=== PATIENT | male | born 1980 | race Caucasian/White ===

== ENCOUNTER 2016-11-13 01:06 | Emergency (ER) | payer OTHER ==
[2016-11-13 01:21] VITALS: TEMP 98.1
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
--- NOTE | 2016-11-13 02:28 | XR ---
EXAM: XR Left Elbow, 2 Views XR Right Elbow, 2 Views CLINICAL HISTORY: Reason: trauma TECHNIQUE: Frontal and lateral views of the bilateral elbows. COMPARISON: No relevant prior studies available. FINDINGS: Bones/joints: Unremarkable. No acute fracture. No dislocation. Soft tissues: Unremarkable. IMPRESSION: Normal bilateral elbow x-rays.
[2016-11-13] MEDS ORDERED: HYDROcodone/APAP 5-325MG 1 EACH TAB PO STA (03:16)
[2016-11-13 03:33] VITALS: BP 133/72; PULSE 89; RESP 16
== END 2016-11-13 03:55 | disposition home or self-care (01) ==
LOC: EC 01:06
DX: S02.2XXA Fracture of nasal bones, initial encounter for closed fracture (principal); S01.81XA Laceration without foreign body of other part of head, initial encounter; M25.521 Pain in right elbow; M25.522 Pain in left elbow; R00.0 Tachycardia, unspecified; F17.200 Nicotine dependence, unspecified, uncomplicated; Y00.XXXA Assault by blunt object, initial encounter; Y92.410 Unspecified street and highway as the place of occurrence of the external cause
CPT/HCPCS: 12014; 70450; 70486; 93005; 99284

== ENCOUNTER 2017-02-23 17:18 | Emergency (ER) | payer OTHER ==
[2017-02-23 17:52] VITALS: BP 121/78; PULSE 78; RESP 18; TEMP 98.9
== END 2017-02-23 18:21 | disposition home or self-care (01) ==
LOC: EC 17:18
DX: Z02.9 Encounter for administrative examinations, unspecified (principal)

== ENCOUNTER 2019-12-20 13:29 | Emergency (ER) | payer OTHER ==
[2019-12-20] MEDS ORDERED: ONDANSETRON 4 MG/2 ML VIAL IVP STA (14:09)
[2019-12-20] MEDS ORDERED: SODIUM CHLORIDE 0.9% 1,000 ML IV STA ×2 (14:09)
[2019-12-20] MEDS ORDERED: KETOROLAC 30 MG/ML 1 ML VIAL IVP STA (14:09)
[2019-12-20] MEDS ORDERED: PANTOPRAZOLE 40 MG/10 ML VIAL IVP STA (14:09)
[2019-12-20] MEDS ORDERED: MORPHINE SULFATE 2 MG/ML SYRINGE IVP STA (14:09)
--- NOTE | 2019-12-20 14:15 | ED ---
Abdominal Pain HPI - General Chief Complaint: Abdominal Pain Stated Complaint: kidney pain/lower back pain Time Seen by Provider: 12/20/19 14:01 Source: patient, RN notes reviewed, old records reviewed Mode of arrival: ambulatory Limitations: no limitations - History of Present Illness Initial Comments: Patient is a 39-year-old male who presents emergency department today for evaluation for concerns for left-sided flank pain or abdominal pain starting yesterday after work. He reports a constant pain. States that it's painful for him to take a deep breath or cough on his left kidney area. No history of kidney stones. He does report he has a darker urine within the past day. Denies any changes in stools. - Related Data Previous Rx's Medication Instructions Recorded Cyclobenzaprine [Flexeril] 10 mg PO TID #12 tab 12/20/19 Ibuprofen [Motrin] 600 mg PO Q6HR PRN #30 tab 12/20/19 Allergies Allergy/AdvReac Type Severity Reaction Status Date / Time No Known Allergies Allergy Verified 12/20/19 16:26 Review of Systems ROS Statement: Those systems with pertinent positive or pertinent negative responses have been documented in the HPI. ROS Other: All systems not noted in ROS Statement are negative. Past Medical History Past Medical History: No Reported History History of Any Multi-Drug Resistant Organisms: None Reported Past Surgical History: Orthopedic Surgery Additional Past Surgical History / Comment(s): rt. reyes Past Psychological History: No Psychological Hx Reported Smoking Status: Current every day smoker Past Alcohol Use History: Daily, Occasional Past Drug Use History: Marijuana General Exam - General Exam Comments Initial Comments: 39-year-old male. Alert and oriented 3. No significant distress. Limitations: no limitations Head exam: Present: atraumatic, normocephalic, normal inspection, other ( mulitple facial tattoos) Eye exam: Present: normal appearance, PERRL, EOMI. Absent: scleral icterus, conjunctival injection, periorbital swelling ENT exam: Present: normal exam, mucous membranes moist Neck exam: Present: normal inspection. Absent: tenderness, meningismus, lymphadenopathy Respiratory exam: Present: normal lung sounds bilaterally. Absent: respiratory distress, wheezes, rales, rhonchi, stridor Cardiovascular Exam: Present: regular rate, normal rhythm, normal heart sounds. Absent: systolic murmur, diastolic murmur, rubs, gallop, clicks GI/Abdominal exam: Present: soft, tenderness (L cva AND suprapubic tenderness. ), normal bowel sounds. Absent: distended, guarding, rebound, rigid Back exam: Present: normal inspection Neurological exam: Present: alert, oriented X3, CN II-XII intact Psychiatric exam: Present: normal affect, normal mood Course Vital Signs 12/20/19 12/20/19 13:47 16:33 Temperature 98.5 F 97.8 F Pulse Rate 99 65 Respiratory 18 17 Rate Blood Pressure 123/91 109/70 O2 Sat by Pulse 97 98 Oximetry Medical Decision Making - Medical Decision Making 39-year-old male presents emergency room today for evaluation for concern for left-sided flank pain after work yesterday with some radiation towards the left lower quadrant. Patient's description initially was concerning for kidney stone. Lab was obtained urinalysis is negative for blood or infection. Is given Toradol and morphine did report continued pain. Therefore computed tomography scan was ordered which shows no signs of hydronephrosis or kidney swelling. There is evidence of findings on pancreas which are stable from previous CAT scan. Patient is a part of these results and advised following up with a primary care doctor. - Lab Data Result diagrams: 12/20/19 14:35 12/20/19 14:35 Lab Results 12/20/19 12/20/19 12/20/19 Range/Units 14:13 14:35 14:35 WBC 10.0 (3.8-10.6) k/uL RBC 5.56 (4.30-5.90) m/uL Hgb 16.6 (13.0-17.5) gm/dL Hct 50.6 (39.0-53.0) % MCV 90.9 (80.0-100.0) fL MCH 29.8 (25.0-35.0) pg MCHC 32.8 (31.0-37.0) g/dL RDW 12.7 (11.5-15.5) % Plt Count 329 (150-450) k/uL Neutrophils % 68 % Lymphocytes % 20 % Monocytes % 6 % Eosinophils % 3 % Basophils % 1 % Neutrophils # 6.9 (1.3-7.7) k/uL Lymphocytes # 2.0 (1.0-4.8) k/uL Monocytes # 0.6 (0-1.0) k/uL Eosinophils # 0.3 (0-0.7) k/uL Basophils # 0.1 (0-0.2) k/uL Sodium 138 (137-145) mmol/L Potassium 4.4 (3.5-5.1) mmol/L Chloride 107 (98-107) mmol/L Carbon Dioxide 23 (22-30) mmol/L Anion Gap 8 mmol/L BUN 22 H (9-20) mg/dL Creatinine 1.01 (0.66-1.25) mg/dL Est GFR (CKD-EPI)AfAm >90 (>60 ml/min/1.73 sqM) Est GFR (CKD-EPI)NonAf >90 (>60 ml/min/1.73 sqM) Glucose 94 (74-99) mg/dL Calcium 9.4 (8.4-10.2) mg/dL Total Bilirubin 0.9 (0.2-1.3) mg/dL AST 32 (17-59) U/L ALT 47 (4-49) U/L Alkaline Phosphatase 91 (38-126) U/L Total Protein 7.9 (6.3-8.2) g/dL Albumin 4.8 (3.5-5.0) g/dL Amylase 50 (30-110) U/L Lipase 41 (23-300) U/L Urine Color Yellow Urine Appearance Clear (Clear) Urine pH 5.5 (5.0-8.0) Ur Specific [place] 1.031 (1.001-1.035) Urine Protein Trace H (Negative) Urine Glucose (UA) Negative (Negative) Urine Ketones Negative (Negative) Urine Blood Negative (Negative) Urine Nitrite Negative (Negative) Urine Bilirubin Negative (Negative) Urine Urobilinogen <2.0 (<2.0) mg/dL Ur Leukocyte Esterase Negative (Negative) - Radiology Data Radiology results: report reviewed CT shows no acute abdomen on the Vantin pelvis. No renal stone or obstruction. Multiple foci near the pancreas is. Change compared old CT and on old exam or nonenhancing. Atelectasis of lung base. This is similar to old exam. Disposition Clinical Impression: Left flank pain Disposition: HOME SELF-CARE Condition: Good Instructions (If sedation given, give patient instructions): Flank Pain (ED) Additional Instructions: Please use medication as discussed. Please follow up with family doctor if symptoms have not improved over the next two days. Please return to the emergency room if your symptoms increase or worsen or for any other concerns. Prescriptions: Cyclobenzaprine [Flexeril] 10 mg PO TID #12 tab Ibuprofen [Motrin] 600 mg PO Q6HR PRN #30 tab PRN Reason: Pain Is patient prescribed a controlled substance at d/c from ED?: No Referrals: None,Stated [Primary Care Provider] - 1-2 days Samantha Hernandez MD [REFERRING] - 1-2 days Alba Garcia MD [STAFF PHYSICIAN] - 1-2 days Time of Disposition: 17:24
[2019-12-20 14:28] LABS: Appearance,Urine Clear (Clear); Bilirubin,Urine Negative (Negative); Blood,Urine Negative (Negative); Color,Urine Yellow; Glucose,Urine (UA) Negative (Negative); Ketones,Urine Negative (Negative); Leukocyte Esterase,Urine Negative (Negative); Nitrite,Urine Negative (Negative); PH, Urine 5.5 (5.0-8.0); Protein,Urine Trace (Negative); Specific Gravity,Urine 1.031 (1.001-1.035); Urobilinogen,Urine <2.0 mg/dL (<2.0)
[2019-12-20 14:44] LABS: Basophils # (A) 0.1 k/uL (0-0.2); Basophils % (A) 1 %; Eosinophils # (A) 0.3 k/uL (0-0.7); Eosinophils % (A) 3 %; HCT 50.6 % (39.0-53.0); HGB 16.6 gm/dL (13.0-17.5); Lymphocytes % (A) 20 %; MCH 29.8 pg (25.0-35.0); MCHC 32.8 g/dL (31.0-37.0); MCV 90.9 fL (80.0-100.0); Mean Platelet Volume 7.1; Monocytes # (A) 0.6 k/uL (0-1.0); Monocytes % (A) 6 %; Neutrophils # (A) 6.9 k/uL (1.3-7.7); Neutrophils % (A) 68 %; Platelet Count 329 k/uL (150-450); RBC 5.56 m/uL (4.30-5.90); RDW 12.7 % (11.5-15.5)
[2019-12-20 14:54] LABS: ALT 47 U/L (4-49); AST 32 U/L (17-59); African American GFR (CKD) >90 (>60 ml/min/1.73 sqM); Albumin 4.8 g/dL (3.5-5.0); Alkaline Phosphatase 91 U/L (38-126); Amylase 50 U/L (30-110); Anion Gap 8 mmol/L; Blood Urea Nitrogen 22 mg/dL (9-20); Calcium 9.4 mg/dL (8.4-10.2); Carbon Dioxide 23 mmol/L (22-30); Chloride 107 mmol/L (98-107); Glucose 94 mg/dL (74-99); Lipase 41 U/L (23-300); Non-African American GFR(CKD) >90 (>60 ml/min/1.73 sqM); Potassium 4.4 mmol/L (3.5-5.1); Sodium 138 mmol/L (137-145); Total Bilirubin 0.9 mg/dL (0.2-1.3); Total Protein 7.9 g/dL (6.3-8.2)
--- NOTE | 2019-12-20 15:55 | XR ---
EXAMINATION TYPE: XR chest 2V DATE OF EXAM: 12/20/2019 COMPARISON: None HISTORY: 39 year-old male left flank pain TECHNIQUE: PA and lateral views FINDINGS: The cardiomediastinal silhouette, aorta, and pulmonary vasculature are within normal limits. Lungs an d pleural spaces are clear. IMPRESSION: No acute cardiopulmonary process.
--- NOTE | 2019-12-20 15:57 | XR ---
EXAMINATION TYPE: XR KUB DATE OF EXAM: 12/20/2019 Comparison: None Clinical History: 39-year-old male with left flank pain Findings: No evidence for free air. Small air-fluid level seen to localize to small bowel loops in the left side of the central abdomen. No abnormal bowel dilatation. Scattered air is present throughout the colon extending distally to the rectum. Mild overall stool burden. No suspicious calcifications seen. Impression: 1. No evidence for free air or bowel obstruction. 2. Small air-fluid levels centrally in the left side of the abdomen could represent a regional ileus or enteritis.
[2019-12-20 16:39] VITALS: TEMP 97.8
--- NOTE | 2019-12-20 17:00 | CT ---
EXAMINATION TYPE: CT abdomen pelvis wo con DATE OF EXAM: 12/20/2019 COMPARISON: 02/12/2012 HISTORY: left flank pain CT DLP: 1045.4 mGycm Automated exposure control for dose reduction was used. Multiple axial sections were obtained from the diaphragm to the floor the pelvis without contrast. There is some patchy atelectasis at the lung bases. There is no pleural effusion. Heart size is yuriy l. There is no pericardial effusion. There is diffuse fatty infiltration of the liver. Stomach is int act. There is no evidence of pancreatic mass. The spleen is intact. There are multiple low-density ar eas anterior to the tail of the pancreas that measure up to 3 cm. These appear separate from the panc reas. There is no adrenal mass. Kidneys have normal size. There is no hydronephrosis. Ureters are not dilat ed. There is no evidence of a renal calculus. There is no retroperitoneal adenopathy. Appendix is pos terior and appears normal. Bladder distends smoothly. There is no inguinal hernia. There is no free f luid in the pelvis. There is no evidence of pelvic mass. There is no mesenteric edema. There is no as cites or free air. There is no evidence of a bowel obstruction. Lumbar vertebra have normal spacing a nd alignment. Posterior elements are intact. The bony pelvis appears intact. IMPRESSION: No acute abnormality of the abdomen pelvis. No renal stone or obstruction. Normal appendix. Multiple low-attenuation foci anterior to the pancreas. These appear unchanged compared to old CT sca n and on old exam were not enhancing. 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 In any event the abnorm ality is benign. Mild subsegmental atelectasis at the lung bases. This appears similar to old exam also. Fatty infiltration of the liver.
[2019-12-20 18:18] VITALS: BP 109/76; PULSE 86; RESP 16
== END 2019-12-20 18:21 | disposition home or self-care (01) ==
LOC: EC 13:29
DX: R10.9 Unspecified abdominal pain (principal); R10.819 Abdominal tenderness, unspecified site; F17.200 Nicotine dependence, unspecified, uncomplicated
CPT/HCPCS: 36415; 80053; 82150; 83690; 85025; 81003; 71046; 74018; 74176; 96374; 96375 ×3; 96361 ×3; 99285; J2405; J1885; J2270; C9113

== ENCOUNTER 2020-06-22 19:51 | Emergency (ER) | payer OTHER ==
[2020-06-22 20:13] VITALS: RESP 18; TEMP 98.8
--- NOTE | 2020-06-22 21:37 | ED ---
Extremity Problem HPI - General Chief complaint: Extremity Problem,Nontraumatic Stated complaint: Shoulder Pain Time Seen by Provider: 06/22/20 21:30 Source: patient Mode of arrival: ambulatory Limitations: no limitations - History of Present Illness Initial comments: 39-year-old male presents emergency Department with chief complaint of shoulder pain. States his been ongoing for the past 6 months but he was not able to have it evaluated due to financial reasons. Patient states pain is exacerbated with any motion of the shoulder. Denies any trauma to the region. Reports occasional tenderness along the trapezius as well. Denies any erythema popping or a cracking sensation. Denies any paresthesias or weakness. Denies chest pain shortness of breath. - Related Data Previous Rx's Medication Instructions Recorded Cyclobenzaprine [Flexeril] 10 mg PO TID #12 tab 12/20/19 Ibuprofen [Motrin] 600 mg PO Q6HR PRN #30 tab 12/20/19 Allergies Allergy/AdvReac Type Severity Reaction Status Date / Time No Known Allergies Allergy Verified 06/22/20 20:13 Review of Systems ROS Statement: Those systems with pertinent positive or pertinent negative responses have been documented in the HPI. ROS Other: All systems not noted in ROS Statement are negative. Past Medical History Past Medical History: No Reported History History of Any Multi-Drug Resistant Organisms: None Reported Past Surgical History: Orthopedic Surgery Additional Past Surgical History / Comment(s): rtWilfrid reyes Past Psychological History: No Psychological Hx Reported Smoking Status: Current every day smoker Past Alcohol Use History: Daily, Occasional Past Drug Use History: Marijuana General Exam Limitations: no limitations General appearance: alert, in no apparent distress Head exam: Present: atraumatic, normocephalic, normal inspection. Absent: other Eye exam: Present: normal appearance, PERRL, EOMI Pupils: Present: normal accommodation ENT exam: Present: normal exam, normal oropharynx, mucous membranes moist, TM's normal bilaterally, normal external ear exam Neck exam: Present: normal inspection, full ROM. Absent: tenderness Respiratory exam: Present: normal lung sounds bilaterally. Absent: respiratory distress, wheezes Cardiovascular Exam: Present: regular rate, normal rhythm, normal heart sounds Extremities exam: Present: normal inspection, full ROM, tenderness (Posterior deltoid tenderness as well as mild tenderness to the trapezius.), normal capillary refill, other (+2 ulnar and radial pulses bilaterally.). Absent: pedal edema, joint swelling, calf tenderness Back exam: Present: normal inspection, full ROM. Absent: tenderness, CVA tenderness (R), CVA tenderness (L) Neurological exam: Present: alert, oriented X3 Psychiatric exam: Present: normal affect, normal mood Skin exam: Present: warm, dry, intact, normal color Course Vital Signs 06/22/20 06/22/20 20:09 22:00 Temperature 98.8 F Pulse Rate 124 H 111 H Respiratory 18 18 Rate Blood Pressure 126/88 139/98 O2 Sat by Pulse 98 97 Oximetry Medical Decision Making - Medical Decision Making 39-year-old male presenting to the emergency department with a chief complaint of left shoulder pain. Physical examination is unremarkable. Patient is neurovascularly intact in the left upper extremity. X-ray reveals mild spurring of the acromioclavicular joint. Toradol for pain. Patient advised to alternate between Tylenol and Motrin for pain control. He was advised follow-up with the promotions specialist. Sling applied. Return parameters discussed the patient was understanding and agreeable. Case discussed with physician. Disposition Clinical Impression: Left shoulder pain, AC joint arthropathy Disposition: HOME SELF-CARE Condition: Stable Instructions (If sedation given, give patient instructions): Shoulder Pain (ED) Additional Instructions: Alternate between Tylenol and Motrin for pain control. Follow with promotions specialist. Return to emergency department if symptoms worsen. Is patient prescribed a controlled substance at d/c from ED?: No Referrals: None,Stated [Primary Care Provider] - 1-2 days Moi Gtz DO [Doctor of Osteopathic Medicine] - 1-2 days Time of Disposition: 22:22
[2020-06-22] MEDS ORDERED: KETOROLAC 15 MG/ML 1 ML VIAL IM STA (21:38)
--- NOTE | 2020-06-22 22:01 | XR ---
EXAMINATION TYPE: XR shoulder complete LT DATE OF EXAM: 06/22/2020 COMPARISON: NONE HISTORY: Pain TECHNIQUE: 3 views FINDINGS: There is some spurring at the AC joint. I see no fracture nor dislocation. Glenohumeral akua nt space is fairly normal. There are no pathologic calcifications at the greater tuberosity. IMPRESSION: Mild spurring at the AC joint. No fracture.
[2020-06-22 22:02] VITALS: BP 139/98; PULSE 111
== END 2020-06-22 22:35 | disposition home or self-care (01) ==
LOC: EC 19:51
DX: M19.012 Primary osteoarthritis, left shoulder (principal); F17.200 Nicotine dependence, unspecified, uncomplicated
CPT/HCPCS: 73030; 99283; 96372; J1885

== ENCOUNTER 2020-12-27 22:39 | Emergency (ER) | payer OTHER ==
[2020-12-27 22:42] VITALS: BP 134/90; PULSE 99; RESP 19; TEMP 98.1
[2020-12-27] MEDS ORDERED: ACET/COD 300 MG/30 MG STARTER PACK 6 TAB BTL PO STA (23:07)
[2020-12-27] MEDS ORDERED: IBUPROFEN 800 MG TAB PO STA (23:07)
[2020-12-27] MEDS ORDERED: IBUPROFEN 600 MG STARTER PACK 4 TAB BTL PO STA (23:07)
[2020-12-27] MEDS ORDERED: AMOXIC-POT CLAV 875MG STARTER PACK 2 TAB BTL PO STA (23:07)
[2020-12-27] MEDS ORDERED: HYDROmorphone 1 MG/ML 1 ML SYRINGE IM STA (23:07)
[2020-12-27] MEDS ORDERED: AMOXIC-POT CLAV 875-125MG 1 EACH TAB PO STA (23:07)
--- NOTE | 2020-12-27 23:12 | ED ---
ENT HPI - General Chief complaint: Dental/Oral Stated complaint: Dental Pain Time Seen by Provider: 12/27/20 22:45 Source: patient, RN notes reviewed, old records reviewed Mode of arrival: ambulatory Limitations: no limitations - History of Present Illness Initial comments: This is a 40-year-old male DF for evaluation presents evaluation regards to shawn re dental pain left lower patient is dental fracture, pain is severe over the last day and half. Patient is unable to go to work. But no fevers no notable abscess no drainage MD complaint: tooth pain -: days(s) Location: tooth # Severity: severe Severity scale (1-10): 9 Quality: stabbing Consistency: constant Improves with: none Worsens with: none Context- Dental: history of dental caries, poor dental care Associated Symptoms: other (none) - Related Data Previous Rx's Medication Instructions Recorded Cyclobenzaprine [Flexeril] 10 mg PO TID #12 tab 12/20/19 Ibuprofen [Motrin] 600 mg PO Q6HR PRN #30 tab 12/20/19 Amoxic-Pot Clav 875-125Mg 1 tab PO Q12HR #20 tablet 12/28/20 [Augmentin 875-125] Allergies Allergy/AdvReac Type Severity Reaction Status Date / Time No Known Allergies Allergy Verified 12/27/20 22:42 Review of Systems ROS Statement: Those systems with pertinent positive or pertinent negative responses have been documented in the HPI. ROS Other: All systems not noted in ROS Statement are negative. Past Medical History Past Medical History: No Reported History History of Any Multi-Drug Resistant Organisms: None Reported Past Surgical History: Orthopedic Surgery Additional Past Surgical History / Comment(s): rt. indexfinger Past Psychological History: No Psychological Hx Reported Smoking Status: Current every day smoker Past Alcohol Use History: Daily, Occasional Past Drug Use History: Marijuana General Exam General appearance: alert, in no apparent distress Head exam: Present: atraumatic, normocephalic, normal inspection Eye exam: Present: normal appearance, PERRL, EOMI. Absent: scleral icterus, conjunctival injection, periorbital swelling ENT exam: Present: normal exam, mucous membranes moist Neck exam: Present: normal inspection. Absent: tenderness, meningismus, lympha denopathy Respiratory exam: Present: normal lung sounds bilaterally. Absent: respiratory distress, wheezes, rales, rhonchi, stridor Cardiovascular Exam: Present: regular rate, normal rhythm, normal heart sounds. Absent: systolic murmur, diastolic murmur, rubs, gallop, clicks GI/Abdominal exam: Present: soft, normal bowel sounds. Absent: distended, tenderness, guarding, rebound, rigid Extremities exam: Present: normal inspection, full ROM, normal capillary refill. Absent: tenderness, pedal edema, joint swelling, calf tenderness Back exam: Present: normal inspection Neurological exam: Present: alert, oriented X3, CN II-XII intact Psychiatric exam: Present: normal affect, normal mood Skin exam: Present: warm, dry, intact, normal color. Absent: rash Course Vital Signs 12/27/20 22:40 Temperature 98.1 F Pulse Rate 99 Respiratory 19 Rate Blood Pressure 134/90 O2 Sat by Pulse 98 Oximetry - Reevaluation(s) Reevaluation #1: Medical record is reviewed Patient symptoms are significantly improved here in the ER Patient is in no distress Spoke patient regarding findings here in the ER and questions are answered Medical Decision Making - Medical Decision Making 40 male presents today for evaluation of dental pain and dental caries dental abscess. Pain is controlled place on antibiotics and can be discharged home Disposition Clinical Impression: Dental abscess, Dental caries Disposition: HOME SELF-CARE Condition: Good Instructions (If sedation given, give patient instructions): Dental Abscess (ED) Prescriptions: Amoxic-Pot Clav 875-125Mg [Augmentin 875-125] 1 tab PO Q12HR #20 tablet Is patient prescribed a controlled substance at d/c from ED?: No Referrals: Samantha Hernandez MD [Primary Care Provider] - 1-2 days
== END 2020-12-28 00:20 | disposition home or self-care (01) ==
LOC: EC 22:39
DX: K02.9 Dental caries, unspecified (principal); K04.7 Periapical abscess without sinus; F17.200 Nicotine dependence, unspecified, uncomplicated
CPT/HCPCS: 99283; 96372; J1170

== ENCOUNTER 2021-04-17 14:27 | Emergency (ER) | payer OTHER ==
[2021-04-17 14:31] VITALS: BP 109/77; PULSE 112; RESP 20; TEMP 97.7
[2021-04-17] MEDS ORDERED: LIDOCAINE 1% INJ 10MG/ML (20 ML MDV) SQ ONE (15:55)
[2021-04-17] MEDS ORDERED: KETOROLAC 15 MG/ML 1 ML VIAL IM STA (15:55)
--- NOTE | 2021-04-17 16:01 | ED ---
General Adult HPI - General Chief complaint: Skin/Abscess/Foreign Body Stated complaint: boil in armpit Time Seen by Provider: 04/17/21 15:45 Source: patient, RN notes reviewed, old records reviewed Mode of arrival: ambulatory Limitations: no limitations - History of Present Illness Initial comments: 40-year-old male presents with pain and swelling in the right armpit. Patient had noted some purulent drainage. He was using crutches approximately one month ago that did not have adequate padding. He believes this may have initiated the suspected abscess in his armpit. He is afebrile. He is a nondiabetic. He is a current smoker. - Related Data Previous Rx's Medication Instructions Recorded Cyclobenzaprine [Flexeril] 10 mg PO TID #12 tab 12/20/19 Ibuprofen [Motrin] 600 mg PO Q6HR PRN #30 tab 12/20/19 Amoxic-Pot Clav 875-125Mg 1 tab PO Q12HR #20 tablet 12/28/20 [Augmentin 875-125] Acetaminophen-Codeine 300-30mg 1 tab PO Q8H PRN 3 Days #5 tablet 04/17/21 [Tylenol w/codeine #3] Cephalexin [Keflex] 500 mg PO QID #40 cap 04/17/21 Sulfamethox-Tmp 800-160Mg [Bactrim 1 tab PO Q12HR #28 tab 04/17/21 DS 800-160 mg] Allergies Allergy/AdvReac Type Severity Reaction Status Date / Time No Known Allergies Allergy Verified 04/17/21 14:27 Review of Systems ROS Statement: Those systems with pertinent positive or pertinent negative responses have been documented in the HPI. ROS Other: All systems not noted in ROS Statement are negative. Past Medical History Past Medical History: No Reported History History of Any Multi-Drug Resistant Organisms: None Reported Past Surgical History: Orthopedic Surgery Additional Past Surgical History / Comment(s): rtWilfrid florfinnaldo Past Psychological History: Anxiety Smoking Status: Current every day smoker Past Alcohol Use History: None Reported, Occasional Past Drug Use History: Marijuana General Exam Limitations: no limitations General appearance: alert, in no apparent distress Head exam: Present: atraumatic, normocephalic Eye exam: Present: normal appearance ENT exam: Present: normal exam Neck exam: Present: normal inspection. Absent: tenderness, meningismus Respiratory exam: Present: normal lung sounds bilaterally. Absent: respiratory distress, wheezes Cardiovascular Exam: Present: regular rate, normal rhythm GI/Abdominal exam: Present: soft. Absent: distended, tenderness Extremities exam: Present: normal inspection Neurological exam: Present: alert, oriented X3 Psychiatric exam: Present: normal affect, normal mood Skin exam: Present: warm, dry, intact, other (Right axilla, there is a 3 x 4 abscess with central fluctuance and an adjacent 1 cm x 1 cm abscess with central fluctuance and both had minimal surrounding cellulitis.) Course Vital Signs 04/17/21 14:28 Temperature 97.7 F Pulse Rate 112 H Respiratory 20 Rate Blood Pressure 109/77 O2 Sat by Pulse 95 Oximetry Procedures - Incision & Drainage Consent Obtained: verbal consent Site: other (Right axilla) Size (cm): 3 Anesthetic Used: lidocaine 1% Amount (mLs): 7 I&D Cleaning Method: Chloroprep Sterile Field Used?: Yes Scalpel Used: #11 Needle Aspiration Performed?: No I&D Drainage Obtained: Pus, Blood Packing: Iodoform Culture Obtained?: Yes Patient Tolerated Procedure: well Medical Decision Making - Medical Decision Making 40-year-old male with 2 abscesses in the right axilla, once in a nearby 1 cm and 3 cm x 4 cm with surrounding cellulitis. This is cleansed, numbed and incised with. Drainage. Small amount of iodoform packing is placed in the larger of the 2 abscesses. Patient is started on antibiotics. Disposition Clinical Impression: Abscess of axilla, right Disposition: HOME SELF-CARE Condition: Good Instructions (If sedation given, give patient instructions): Abscess Incision and Drainage (ED), Abscess (ED) Prescriptions: Sulfamethox-Tmp 800-160Mg [Bactrim DS 800-160 mg] 1 tab PO Q12HR #28 tab Cephalexin [Keflex] 500 mg PO QID #40 cap Acetaminophen-Codeine 300-30mg [Tylenol w/codeine #3] 1 tab PO Q8H PRN 3 Days #5 tablet PRN Reason: Pain Is patient prescribed a controlled substance at d/c from ED?: No Referrals: Samantha Hernandez MD [Primary Care Provider] - 1-2 days Time of Disposition: 16:16
== END 2021-04-17 16:49 | disposition home or self-care (01) ==
LOC: EC 14:27
DX: L02.411 Cutaneous abscess of right axilla (principal); F17.200 Nicotine dependence, unspecified, uncomplicated
CPT/HCPCS: 87070; 87205; 99283; 10060; 96372; J2001; J1885

== ENCOUNTER 2021-11-05 23:05 | Emergency (ER) | payer OTHER ==
[2021-11-05] MEDS ORDERED: LIDOCAINE 1% INJ 10MG/ML (5 ML VIAL-PF) SQ ONE (23:10)
[2021-11-05 23:11] VITALS: BP 117/78; PULSE 104; RESP 20; TEMP 98.2
--- NOTE | 2021-11-05 23:26 | ED ---
Upper Extremity HPI - General Chief Complaint: Extremity Injury, Upper Stated Complaint: Fishing [place] stuck in fingers Time Seen by Provider: 11/05/21 23:10 Source: patient Mode of arrival: ambulatory Limitations: no limitations - History of Present Illness Initial Comments: Patient fishing at the [employer] sustained a fishhook puncture wound to the distal aspect of his left thumb just prior to arrival. Describing some pain to the area. Tetanus is up-to-date. No other injuries. No distal paresthesias. No headache, no fever or chills, no changes in vision or hearing, no sore throat or difficulty with speech, no neck pain, no chest pain or shortness of breath, no abdominal pain, no nausea or vomiting, no changes in urination or bowel movements, no numbness or tingling, no extremity pain, no skin rashes or lesions. MD Complaint: Injury to:: left, finger (Thumb) - Related Data Previous Rx's Medication Instructions Recorded Cyclobenzaprine [Flexeril] 10 mg PO TID #12 tab 12/20/19 Ibuprofen [Motrin] 600 mg PO Q6HR PRN #30 tab 12/20/19 Amoxic-Pot Clav 875-125Mg 1 tab PO Q12HR #20 tablet 12/28/20 [Augmentin 875-125] Acetaminophen-Codeine 300-30mg 1 tab PO Q8H PRN 3 Days #5 tablet 04/17/21 [Tylenol w/codeine #3] Cephalexin [Keflex] 500 mg PO QID #40 cap 04/17/21 Sulfamethox-Tmp 800-160Mg [Bactrim 1 tab PO Q12HR #28 tab 04/17/21 DS 800-160 mg] Allergies Allergy/AdvReac Type Severity Reaction Status Date / Time No Known Allergies Allergy Verified 11/05/21 23:11 Review of Systems ROS Statement: Those systems with pertinent positive or pertinent negative responses have been documented in the HPI. ROS Other: All systems not noted in ROS Statement are negative. Past Medical History Past Medical History: No Reported History History of Any Multi-Drug Resistant Organisms: MRSA Date of last positivie culture/infection: 04/17/21 MDRO Source:: MRSA AXILLA Past Surgical History: Orthopedic Surgery Additional Past Surgical History / Comment(s): rt. indexfinger Past Psychological History: Anxiety Smoking Status: Current every day smoker Past Alcohol Use History: None Reported Past Drug Use History: Marijuana General Exam Limitations: no limitations General appearance: alert, in no apparent distress Head exam: Present: atraumatic, normocephalic, normal inspection Eye exam: Present: normal appearance, PERRL, EOMI. Absent: scleral icterus, conjunctival injection, periorbital swelling ENT exam: Present: normal exam, mucous membranes moist Neck exam: Present: normal inspection. Absent: tenderness, meningismus, lymphadenopathy Respiratory exam: Present: normal lung sounds bilaterally. Absent: respiratory distress, wheezes, rales, rhonchi, stridor Cardiovascular Exam: Present: regular rate, normal rhythm, normal heart sounds. Absent: systolic murmur, diastolic murmur, rubs, gallop, clicks GI/Abdominal exam: Present: soft, normal bowel sounds. Absent: distended, tenderness, guarding, rebound, rigid Extremities exam: Present: normal inspection, full ROM, normal capillary refill, other ([place] embedded in left thumb.). Absent: tenderness, pedal edema, joint swelling, calf tenderness Back exam: Present: normal inspection Neurological exam: Present: alert, oriented X3, CN II-XII intact Psychiatric exam: Present: normal affect, normal mood Skin exam: Present: warm, dry, intact, normal color. Absent: rash Course Vital Signs 11/05/21 23:08 Temperature 98.2 F Pulse Rate 104 H Respiratory 20 Rate Blood Pressure 117/78 O2 Sat by Pulse 97 Oximetry Procedures - Procedures Initial comment: Digital block with 1% lidocaine without epinephrine. 2 mL of anesthetic use. [place] was advanced forward with needle nose pliers. Doris was cut with wire cutters. Needle was backed out. Wound was soaked in Betadine. Patient tolerat ed well. Medical Decision Making - Medical Decision Making Stressed wound care. Discussed signs and symptoms of infection. Discussed return develop iritis. Discussed warm soaks. Patient voiced understanding. Patient was told to return to the ER for any signs or symptoms worsen. Told to return immediately if any other problems arise. All questions answered. Treatment plan discussed. Patient in agreement Every effort has been made to ensure accuracy of this dictation. However, due to the limitations of electronic medical records and dictation devices, errors in charting still occur. Patient Service Representative Dr. Hernandez Disposition Clinical Impression: Puncture wound of thumb, [place] injury to finger Disposition: HOME SELF-CARE Condition: Good Instructions (If sedation given, give patient instructions): Puncture Wound (ED) Additional Instructions: Soak the wound in warm soapy water for 10 minutes at a time 4 times daily. Keep covered with antibiotic ointment and a Band-Aid. Is patient prescribed a controlled substance at d/c from ED?: No Referrals: None,Stated [Primary Care Provider] - 1-2 days Time of Disposition: 23:25
== END 2021-11-05 23:32 | disposition home or self-care (01) ==
LOC: EC 23:05
DX: S61.032A Puncture wound without foreign body of left thumb without damage to nail, initial encounter (principal); F17.200 Nicotine dependence, unspecified, uncomplicated; X58.XXXA Exposure to other specified factors, initial encounter
CPT/HCPCS: 99283; J2001

== ENCOUNTER 2022-12-16 15:33 | Emergency (ER) | payer OTHER ==
[2022-12-16 16:22] VITALS: BP 116/79; PULSE 82; RESP 18; TEMP 98.9
[2022-12-16] MEDS ORDERED: LIDOCAINE 1% INJ 10MG/ML (30 ML VIAL-PF) SQ ONE (16:36)
--- NOTE | 2022-12-16 16:58 | ED ---
General Adult HPI - General Chief complaint: Skin/Abscess/Foreign Body Stated complaint: left finger injury-fishing hook in finger Time Seen by Provider: 12/16/22 16:30 Source: patient Mode of arrival: ambulatory - History of Present Illness Initial comments: She is a 42-year-old male presents to the emergency department for fish hook in finger. It occurred prior to arrival in right pointer finger. Patient reports minimal pain. Tetanus is up-to-date. - Related Data Home Medications Medication Instructions Recorded Confirmed No Known Home Medications 12/16/22 12/16/22 Allergies Allergy/AdvReac Type Severity Reaction Status Date / Time No Known Allergies Allergy Verified 12/16/22 16:51 Review of Systems ROS Statement: Those systems with pertinent positive or pertinent negative responses have been documented in the HPI. ROS Other: All systems not noted in ROS Statement are negative. Past Medical History Past Medical History: No Reported History History of Any Multi-Drug Resistant Organisms: MRSA Date of last positivie culture/infection: 04/17/21 MDRO Source:: MRSA AXILLA Past Surgical History: Orthopedic Surgery Additional Past Surgical History / Comment(s): rt. indexfinger Past Psychological History: No Psychological Hx Reported Smoking Status: Current every day smoker Past Alcohol Use History: None Reported Past Drug Use History: Marijuana General Exam General appearance: alert, in no apparent distress Head exam: Present: atraumatic, normocephalic, normal inspection Respiratory exam: Present: normal lung sounds bilaterally. Absent: respiratory distress, wheezes, rales, rhonchi, stridor Cardiovascular Exam: Present: regular rate, normal rhythm, normal heart sounds. Absent: systolic murmur, diastolic murmur, rubs, gallop, clicks Extremities exam: Present: other (fish hook right pointer finger neurovascularly intact full range of motion) Neurological exam: Present: alert, oriented X3 Psychiatric exam: Present: normal affect, normal mood Skin exam: Present: warm, dry, intact, normal color. Absent: rash Course Vital Signs 12/16/22 16:16 Temperature 98.9 F Pulse Rate 82 Respiratory 18 Rate Blood Pressure 116/79 O2 Sat by Pulse 97 Oximetry Procedures - Forgein Body Removal Soft Tissue Consent Obtained: verbal consent Site: hand Anesthetic Used: lidocaine 1% Foreign Body Suspected: Fish Hook Patient Tolerated Procedure: well, no complications Medical Decision Making - Medical Decision Making Was pt. sent in by a medical professional or institution ([facility] Lopez, [employer], urgent care, hospital, or long-term...) When possible be specific @ -No Did you speak to anyone other than the patient for history (EMS, parent, family, police, friend...)? What history was obtained from this source @ -No Did you review nursing and triage notes (agree or disagree)? Why? @ -I reviewed and agree with nursing and triage notes Were old charts reviewed (outside hosp., previous admission, EMS record, old EKG, old radiological studies, urgent care reports/EKG's, long-term records)? Report findings @ -No old charts were reviewed Differential Diagnosis (chest pain, altered mental status, abdominal pain women, abdominal pain men, vaginal bleeding, weakness, fever, dyspnea, syncope, headache, dizziness, GI bleed, back pain, seizure, CVA, palpatations, mental health)? @ -not applicable EKG interpreted by me (3pts min.). @ -None X-rays interpreted by me (1pt min.). @ -None done CT interpreted by me (1pt min.). @ -None done U/S interpreted by me (1pt. min.). @ -None done What testing was considered but not performed or refused? (CT, X-rays, U/S, labs)? Why? @ -None What meds were considered but not given or refused? Why? @ -None Did you discuss the management of the patient with other professionals (professionals i.e. [facility] Lopez, [employer], lab, RT, psych nurse, social science teacher, patrol lady, teacher, credit review officer, housing case manager)? Give summary @ -No Was smoking cessation discussed for >3mins.? @ -No Was critical care preformed (if so, how long)? @ -No Were there social determinants of health that impacted care today? How? (Homelessness, low income, unemployed, alcoholism, drug addiction, transportation, low edu. Level, literacy, decrease access to med. care, shelter, rehab)? @ -No Was there de-escalation of care discussed even if they declined (Discuss DNR or withdrawal of care, Hospice)? DNR status @ -No What co-morbidities impacted this encounter? (DM, HTN, Smoking, COPD, CAD, Cancer, CVA, ARF, Chemo, Hep., AIDS, mental health diagnosis, sleep apnea, morbid obesity)? @ -None Was patient admitted / discharged? Hospital course, mention meds given and route, prescriptions, significant lab abnormalities, going to OR and other pertinent info. @ discharged Undiagnosed new problem with uncertain prognosis? @ -No Drug Therapy requiring intensive monitoring for toxicity (Heparin, Nitro, Insulin, Cardizem)? @ -No Were any procedures done? @ -Yes, fish hook removal Diagnosis/symptom? @ -fish hook in finger Acute, or Chronic, or Acute on Chronic? @ -acute Uncomplicated (without systemic symptoms) or Complicated (systemic symptoms)? @ -uncomplicated Side effects of treatment? @ -No Exacerbation, Progression, or Severe Exacerbation? @ -No Poses a threat to life or bodily function? How? (Chest pain, [place], [place], pneumonia, PE, COPD, DKA, ARF, appy, cholecystitis, CVA, Diverticulitis, Homicidal, Suicidal, threat to staff... and all critical care pts) @ -No Dr. Macedo is my attending Disposition Clinical Impression: Fish hook injury of finger of right hand Disposition: HOME SELF-CARE Condition: Good Instructions (If sedation given, give patient instructions): Acute Wound Care (ED) Additional Instructions: Leave wound uncovered. Keep wound clean and dry. Wash with a mild soap. Take Tylenol or anti-inflammatories such as Motrin for pain. Follow-up with primary care provider in 1-2 days. Report back to the emergency department if you experience new, concerning, or worsening symptoms. Is patient prescribed a controlled substance at d/c from ED?: No Referrals: None,Stated [Primary Care Provider] - 1-2 days
== END 2022-12-16 17:10 | disposition home or self-care (01) ==
LOC: EC 15:33
DX: S60.459A Superficial foreign body of unspecified finger, initial encounter (principal); F17.200 Nicotine dependence, unspecified, uncomplicated; F12.90 Cannabis use, unspecified, uncomplicated; W45.8XXA Other foreign body or object entering through skin, initial encounter
CPT/HCPCS: 99283; 10120; J2001